=== PATIENT | male | born 1955 | race Two or more races ===

== ENCOUNTER 2022-07-28 14:10 | Emergency (ER) | payer BC ==
[~2022-07-28] VITALS: Ht 157.5 cm; Wt 81.6 kg
--- NOTE | 2022-07-28 14:35 | NUR ---
HEMATURIA, L SIDED GROIN AREA SWELLING X 3 WEEKS.
[2022-07-28] MEDS ORDERED: KETOROLAC TROMETHAMINE INJ 30 MG/ML VIAL IV ONE (15:00)
[2022-07-28 15:56] LABS: BASOPHILS % (AUTO) 0.9 % (0.0-2.0); EOSINOPHILS % (AUTO) 3.4 % (0.0-6.0); HEMATOCRIT 40 % (39-51); HEMOGLOBIN 13.5 g/dL (13.5-17.5); LYMPHOCYTES # (AUTO) 1.9 K/uL (0.8-4.8); LYMPHOCYTES % (AUTO) 42.1 % (20.0-44.0); MEAN CORPUSCULAR HGB CONC 34 g/dl (31.0-36.0); MEAN CORPUSCULAR VOLUME 97 fL (80-96); MONOCYTES # (AUTO) 0.6 K/uL (0.1-1.30); MONOCYTES % (AUTO) 12.9 % (2.0-12.0); NEUTROPHILS # (AUTO) 1.9 K/uL (1.8-8.9); NEUTROPHILS % (AUTO) 40.7 % (43.0-81.0); PLATELET COUNT (AUTO) 143 K/uL (150-450); RED BLOOD CELL COUNT(AUTO) 4.17 MIL/uL (4.5-6.0); WHITE BLOOD COUNT (AUTO) 4.6 K/uL (4.3-11.0)
[2022-07-28 16:21] LABS: ALBUMIN 3.7 g/dL (3.4-5.0); BILIRUBIN,DIRECT 0.1 mg/dL (0.0-0.2); BILIRUBIN,TOTAL 0.5 mg/dL (0.2-1.0); CALCIUM, SERUM 9.5 mg/dL (8.5-10.1); CREATININE 0.8 mg/dL (0.6-1.3); TOTAL PROTEIN, SERUM 7.3 g/dL (6.4-8.2)
[2022-07-28] MEDS ORDERED: KETOROLAC TROMETHAMINE 15 MG/ML VIAL ONE (16:40)
[2022-07-28] MEDS ORDERED: KETOROLAC TROMETHAMINE INJ 60 MG/2 ML VIAL IM ONE (17:00)
[2022-07-28] MEDS ORDERED: KETOROLAC TROMETHAMINE INJ 30 MG/ML VIAL ONE (17:09)
[2022-07-28 17:11] VITALS: BP 143/81; TEMP 97.9
--- NOTE | 2022-07-28 17:21 | NUR ---
Patient discharged to home in stable condition. Written and verbal after care instructions given. Patient verbalizes understanding of instruction.
== END 2022-07-28 17:21 | disposition home or self-care (01) ==
LOC: ER 14:10
DX: K40.90 Unilateral inguinal hernia, without obstruction or gangrene, not specified as recurrent (principal); I10 Essential (primary) hypertension; E11.9 Type 2 diabetes mellitus without complications
CPT/HCPCS: 99285; 74176; 96372; 85025; 80048; 83690; 80076; 36415; J1885

== ENCOUNTER 2024-04-29 08:58 | Emergency (ER) | payer BC ==
[~2024-04-29] VITALS: Ht 162.6 cm; Wt 77.1 kg
[2024-04-29] MEDS ORDERED: CT SWABBABLE VALVE TRANS SET 1 EA INFUS.SET MC ONE (09:48)
[2024-04-29] MEDS ORDERED: IV NS 0.9% 250 ML IV ONE (09:48)
[2024-04-29] MEDS ORDERED: IOHEXOL-300 100 ML VIAL IV ONE (09:48)
[2024-04-29] MEDS ORDERED: NAPR-1009 PO (10:42)
[2024-04-29] MEDS ORDERED: AZIT250T13 PO (10:42)
[2024-04-29 10:57] VITALS: BP 165/74; TEMP 98.5; O2SAT 98
== END 2024-04-29 10:58 | disposition home or self-care (01) ==
LOC: ER 09:03
DX: S22.32XA Fracture of one rib, left side, initial encounter for closed fracture (principal); I10 Essential (primary) hypertension; E11.9 Type 2 diabetes mellitus without complications; M19.90 Unspecified osteoarthritis, unspecified site; W18.30XA Fall on same level, unspecified, initial encounter; Y93.89 Activity, other specified; Y92.89 Other specified places as the place of occurrence of the external cause; Y99.8 Other external cause status
CPT/HCPCS: 99285; 71260; 74177; J7050; Q9967